=== PATIENT | male | born 1990 | race Caucasian/White ===

== ENCOUNTER 2018-06-17 11:45 | Emergency (ER) | payer SELFPAY ==
[~2018-06-17] VITALS: Ht 188 cm; Wt 99.8 kg
[2018-06-17 11:25] VITALS: BP 143/111
--- NOTE | 2018-06-17 11:25 | NUR ---
ED Nurse Note: Pt brought in by ambulance picked up from [facility] due to Overdose of heroin. Pt denies SI but states, "I just want to get high." Narcan 2mg given en route. Pt is AAO x4, follows commands with non labored breathing. Noted drowsiness and rambling of speech.
--- NOTE | 2018-06-17 11:45 | NUR ---
ED Nurse Note: Noted pt still drowsy and unable to answer questions immediately. VSS.
[2018-06-17 12:59] VITALS: BP 129/89
[2018-06-17] MEDS ORDERED: NARCAN4 MG NS (13:37)
--- NOTE | 2018-06-17 14:51 | NUR ---
ED Nurse Note: Pt more awake at this time but still with rambling speech. VSS.
[2018-06-17 15:30] VITALS: BP 132/75
[2018-06-17 16:34] VITALS: BP 128/80
--- NOTE | 2018-06-17 16:34 | NUR ---
ED Nurse Note: Pt is cleared by ER MD for discharge. DC instructions/prescription was given and explained to pt and verbalized understanding of teachings. All medical devices such as ID band/IV removed. Pt is AAO x4, ambulatory and left with all personal belongings. Pt letf with his friend.
--- NOTE | 2018-06-19 18:56 | Emergency Room Report ---
History of Present Illness General Chief Complaint: Overdose Source: Patient, EMS Present Illness HPI Patient is a 28-year-old male brought in by EMS after reported narcotic overdose. Patient states that he had used heroin. Patient was given 2 mg of IM Narcan in the field. He denies any current complaints. Patient states that he had not been attempting to harm himself. Allergies: Coded Allergies: No Known Allergies (Unverified , 06/17/18) Patient History Past Medical History: see triage record Reviewed Nursing Documentation: PMH: Agreed; PSxH: Agreed Nursing Documentation-PMH Past Medical History: No History, Except For Review of Systems All Other Systems: negative except mentioned in HPI Physical Exam Vital Signs Date Time Temp Pulse Resp B/P (MAP) Pulse Ox O2 Delivery O2 Flow Rate FiO2 06/17/18 11:15 98.1 84 18 164/108 98 Room Air Sp02 EP Interpretation: reviewed, normal General Appearance: normal inspection, well appearing, no apparent distress, alert, GCS 15 Head: atraumatic ENT: normal ENT inspection, hearing grossly normal, normal voice Neck: normal inspection, full range of motion, supple, no bony tend Respiratory: normal inspection, lungs clear, normal breath sounds, no respiratory distress, no retraction, no wheezing Cardiovascular #1: regular rate, rhythm, no edema Gastrointestinal: normal inspection, normal bowel sounds, non tender, soft, no guarding, no hernia Genitourinary: no CVA tenderness Musculoskeletal: normal inspection, back normal, normal range of motion Neurologic: normal inspection, alert, oriented x3, responsive, jewel setter III-XII nml as tested, speech normal Psychiatric: normal inspection, judgement/insight normal, mood/affect normal Skin: normal inspection, normal color, no rash Medical Decision Making Diagnostic Impression: Primary Impression: Drug overdose ER Course Patient presented for narcotic overdose. Differential diagnosis include was not limited to pulmonary edema, suicide attempt, meningitis among others. Patient has a benign exam and does not appear to require any further imaging or laboratory testing at this time patient was observed in the emergency department was noted to be stable throughout stay. Gradually improvement of his mental status. Patient was noted to have prior history of drug abuse and was given prescription for Narcan. Patient was advised to follow-up with his primary care physician. Last Vital Signs Date Time Temp Pulse Resp B/P (MAP) Pulse Ox O2 Delivery O2 Flow Rate FiO2 06/17/18 16:34 98.2 77 18 128/80 99 Room Air Status: improved Disposition: HOME, SELF-CARE Condition: Stable Scripts Naloxone HCl (Narcan) 4 Mg [place] 4 MG NS ONCE, #1 SPRAY Prov: Bandar Rodriguez MD 06/17/18 Referrals: NON PHYSICIAN (PCP) Patient Instructions: Opioid Use Disorder Bandar Rodriguez MD Jun 19, 2018 18:56
== END 2018-06-17 16:34 | disposition home or self-care (01) ==
LOC: EDBD 11:45 → EMR 12:17
DX: T40.1X1A Poisoning by heroin, accidental (unintentional), initial encounter (principal); Y92.9 Unspecified place or not applicable
CPT/HCPCS: 99282